=== PATIENT | male | born 1970 | race Caucasian/White ===

== ENCOUNTER 2017-03-02 01:49 | Inpatient (IN) | payer SELFPAY ==
[2017-03-02] MEDS ORDERED: DILAUDID IV ONE (02:53)
[2017-03-02] MEDS ORDERED: NACL 0.9% 1000 ML 1,000 ML IV ONE (02:53)
[2017-03-02] MEDS ORDERED: ZOFRAN IV ONE (02:53)
--- NOTE | 2017-03-02 02:54 | Emergency Department Report ---
ED Abdominal Pain HPI - General Chief Complaint: Abdominal Pain Stated Complaint: ABD PAIN X 5 DAYS Time Seen by Provider: 03/02/17 02:44 Source: patient, family, RN notes reviewed Mode of arrival: Stretcher Limitations: Language Barrier - History of Present Illness Initial Comments: patient requests that son translate This is a 46-year-old male. He is previously unknown to me. He does not have a local primary care doctor. The patient presents to the ER with epigastric and right upper quadrant pain for a few days. The pain is sharp. It increases with palpation and range of motion. Decreased rest. There is no headache or neck pain. There is no testicular pain. There is no irritative or obstructive urinary symptoms. His pain is been constant. It is worsening. MD Complaint: abdominal pain -: Gradual Location: RUQ, epigastric Radiation: none Severity: severe Quality: aching Consistency: constant Improves With: medication, rest Worsens With: medication Associated Symptoms: nausea - Related Data Home Medications Medication Instructions Recorded Confirmed Last Taken No Known Home Medications [No 03/02/17 03/02/17 Unknown Reported Home Medications] Allergies Allergy/AdvReac Type Severity Reaction Status Date / Time No Known Allergies Allergy Verified 03/02/17 02:08 ED Review of Systems ROS: Stated complaint: ABD PAIN X 5 DAYS Other details as noted in HPI Constitutional: malaise. denies: fever Eyes: denies: vision change ENT: denies: epistaxis Respiratory: denies: cough Cardiovascular: denies: palpitations Gastrointestinal: abdominal pain Genitourinary: denies: testicular pain Musculoskeletal: denies: back pain Skin: denies: lesions Neurological: weakness ED Past Medical Hx - Past Medical History Previous Medical History?: No - Surgical History Past Surgical History?: No - Social History Smoking Status: Never Smoker Substance Use Type: None - Medications Home Medications: Home Medications Medication Instructions Recorded Confirmed Last Taken Type No Known Home Medications [No 03/02/17 03/02/17 Unknown History Reported Home Medications] ED Physical Exam - General Limitations: Language Barrier General appearance: alert, in distress - Head Head exam: Present: atraumatic, normocephalic - Eye Eye exam: Present: normal appearance, EOMI - ENT ENT exam: Present: normal exam, normal orophraynx, mucous membranes moist, normal external ear exam - Neck Neck exam: Present: normal inspection, full ROM. Absent: tenderness, meningismus - Respiratory Respiratory exam: Present: normal lung sounds bilaterally. Absent: respiratory distress, wheezes, rales, rhonchi, stridor, chest wall tenderness - Cardiovascular Cardiovascular Exam: Present: regular rate, normal rhythm, normal heart sounds. Absent: bradycardia, tachycardia, irregular rhythm, systolic murmur, diastolic murmur, rubs, gallop - GI/Abdominal GI/Abdominal exam: Present: soft, tenderness, normal bowel sounds, other (there is epigastric tenderness. There is right upper quadrant tenderness.). Absent: distended, guarding, rebound, rigid, pulsatile mass - Rectal Rectal exam: Present: deferred - Extremities Exam Extremities exam: Present: normal inspection, full ROM, normal capillary refill. Absent: tenderness, pedal edema, joint swelling, calf tenderness - Back Exam Back exam: Present: normal inspection, full ROM. Absent: tenderness, CVA tenderness (R), CVA tenderness (L), muscle spasm, paraspinal tenderness, vertebral tenderness - Neurological Exam Neurological exam: Present: alert, other (Extraocular movements intact. Tongue midline. No facial droop. Facial sensation intact to light touch in the V1, V2 , V3 distribution bilaterally. 5 and 5 strength in 4 extremities.. Sensation is intact to light touch in 4 extremities.). Absent: motor sensory deficit - Psychiatric Psychiatric exam: Present: normal affect, normal mood - Skin Skin exam: Present: warm, dry, intact, normal color. Absent: rash ED Course Vital Signs 03/02/17 03/02/17 03/02/17 02:09 03:17 03:19 Temperature 98.4 F Pulse Rate 72 Respiratory 16 16 17 Rate Blood Pressure 118/71 Blood Pressure [Left] O2 Sat by Pulse 96 99 Oximetry 03/02/17 03/02/17 03/02/17 03:27 04:00 05:08 Temperature Pulse Rate 60 61 Respiratory 19 14 Rate Blood Pressure 111/59 Blood Pressure 126/72 108/58 [Left] O2 Sat by Pulse 97 96 Oximetry 03/02/17 05:52 Temperature Pulse Rate 60 Respiratory 15 Rate Blood Pressure Blood Pressure 105/67 [Left] O2 Sat by Pulse 96 Oximetry - Reevaluation(s) Reevaluation #1: 03/02/17 05:27 Dr Vallecillo accepts patient awaiting ct read awaiting GI callback Reevaluation #2: 03/02/17 05:59 ct scan suggests gallstone pancreatitis d/w Dr Hany Watson of GI, who will follow as a consult ED Medical Decision Making - Lab Data Result diagrams: 03/03/17 04:05 03/03/17 04:05 Vital Signs 03/02/17 03/02/17 03/02/17 02:09 03:17 03:19 Temperature 98.4 F Pulse Rate 72 Respiratory 16 16 17 Rate Blood Pressure 118/71 Blood Pressure [Left] O2 Sat by Pulse 96 99 Oximetry 03/02/17 03:27 Temperature Pulse Rate 60 Respiratory 19 Rate Blood Pressure Blood Pressure 126/72 [Left] O2 Sat by Pulse 97 Oximetry Labs 03/02/17 03/02/17 03/02/17 02:31 02:54 02:54 WBC 9.1 RBC 4.88 Hgb 15.0 Hct 42.7 MCV 87 MCH 31 MCHC 35 H RDW 13.8 Plt Count 194 Lymph % (Auto) 11.3 L Ray % (Auto) 7.7 H Eos % (Auto) 0.8 Baso % (Auto) 0.2 Lymph # 1.0 L Ray # 0.7 Eos # 0.1 Baso # 0.0 Seg Neutrophils % 80.0 H Seg Neutrophils # 7.3 PT INR Sodium 138 Potassium 3.8 Chloride 100.9 Carbon Dioxide 23 Anion Gap 18 BUN 20 Creatinine 0.9 Estimated GFR > 60 BUN/Creatinine Ratio 22.22 Glucose 130 H Lactic Acid Calcium 8.8 Total Bilirubin 6.10 H AST 192 H ALT 426 H Alkaline Phosphatase 144 H Total Protein 7.1 Albumin 4.1 Albumin/Globulin Ratio 1.4 Urine Color Lilian Urine Turbidity Clear Urine pH 5.0 Ur Specific Anthon 1.015 Urine Protein <15 mg/dl Urine Glucose (UA) Neg Urine Ketones Neg Urine Blood Sm Urine Nitrite Neg Urine Bilirubin Neg Urine Urobilinogen 4.0 Ur Leukocyte Esterase Neg Urine WBC (Auto) 1.0 Urine RBC (Auto) 3.0 U Epithel Cells (Auto) < 1.0 Urine Mucus Few 03/02/17 03/02/17 02:54 02:54 WBC RBC Hgb Hct MCV MCH MCHC RDW Plt Count Lymph % (Auto) Ray % (Auto) Eos % (Auto) Baso % (Auto) Lymph # Ray # Eos # Baso # Seg Neutrophils % Seg Neutrophils # PT 13.0 INR 0.94 Sodium Potassium Chloride Carbon Dioxide Anion Gap BUN Creatinine Estimated GFR BUN/Creatinine Ratio Glucose Lactic Acid 0.90 Calcium Total Bilirubin AST ALT Alkaline Phosphatase Total Protein Albumin Albumin/Globulin Ratio Urine Color Urine Turbidity Urine pH Ur Specific Anthon Urine Protein Urine Glucose (UA) Urine Ketones Urine Blood Urine Nitrite Urine Bilirubin Urine Urobilinogen Ur Leukocyte Esterase Urine WBC (Auto) Urine RBC (Auto) U Epithel Cells (Auto) Urine Mucus - EKG Data -: EKG Interpreted by Me EKG shows normal: sinus rhythm, axis, intervals, QRS complexes, ST-T waves - Radiology Data Radiology results: report reviewed - Medical Decision Making Differential diagnosis: Pancreatitis, cholecystitis, biliary obstruction, choledochal stone, renal colic, perforated viscus Assessment and plan: 46-year-old male with epigastric and right upper quadrant pain and tenderness. He is found to have a transaminitis and elevated direct bilirubin. He is treated with pain medicine and nausea medicine and IV fluids. CT scan of the abdomen and pelvis is pending. Critical care attestation.: If time is entered above; I have spent that time in minutes in the direct care of this critically ill patient, excluding procedure time. ED Disposition Clinical Impression: Transaminitis, Hyperbilirubinemia, Pancreatitis Disposition: [id number] OP ADMIT IP TO THIS HOSP Is pt being admited?: Yes Condition: Good
[2017-03-02 03:05] LABS: Bilirubin,Urine NEG (Negative); Blood,Urine SM (Negative); Ketones,Urine NEG (Negative); Leukocyte Esterase,Urine NEG (Negative); Mucus,Urine FEW /HPF; Nitrite,Urine NEG (Negative); Protein,Urine <15 mg/dL mg/dL (Negative)
[2017-03-02] MEDS ORDERED: NACL ONE (03:42)
[2017-03-02 03:48] LABS: Basophils % (Auto) 0.2 % (0.0-1.8); Eosinophils % (Auto) 0.8 % (0.0-4.3); Hematocrit 42.7 % (35.5-45.6); Mean Corpuscular HGB Conc 35 % (32-34); Mean Corpuscular Hemoglobin 31 pg (28-32); Mean Corpuscular Volume 87 fl (84-94); Platelet Count 194 K/mm3 (140-440); Red Blood Count 4.88 M/mm3 (3.65-5.03); Red Cell Distribution Width 13.8 % (13.2-15.2); White Blood Count 9.1 K/mm3 (4.5-11.0)
[2017-03-02 03:57] LABS: Alanine Aminotransferase 426 units/L (7-56); Albumin 4.1 g/dL (3.9-5); Albumin/Globulin Ratio 1.4 %; Alkaline Phosphatase 144 units/L (35-129); Anion Gap 18 mmol/L; BUN/Creatinine Ratio 22.22; Blood Urea Nitrogen 20 mg/dL (9-20); Calcium 8.8 mg/dL (8.4-10.2); Carbon Dioxide 23 mmol/L (22-30); Chloride 100.9 mmol/L (98-107); Glucose 130 mg/dL (75-100); INR 0.94 (0.87-1.13); Potassium 3.8 mmol/L (3.6-5.0); Sodium 138 mmol/L (137-145); Total Protein 7.1 g/dL (6.3-8.2)
[2017-03-02 04:33] LABS: Lipase 2793 units/L (13-60)
--- NOTE | 2017-03-02 05:41 | Cat Scan Report ---
FINAL REPORT PROCEDURE: CT ABDOMEN PELVIS W CON TECHNIQUE: Computerized axial tomography of the abdomen and pelvis was performed after the IV injection of iodinated nonionic contrast. HISTORY: abd pain COMPARISON: No prior studies are available for comparison. FINDINGS: Visualized lower thorax: No significant abnormality. Liver: Normal size and attenuation. Spleen: Normal size and attenuation. Gallbladder and biliary system: There is cholelithiasis and choledocholithiasis. There is no specific evidence of cholecystitis.. Pancreas: There is peripancreatic edema indicating acute pancreatitis. There is no pancreatic mass or pseudocyst.. Adrenals: Normal. Kidneys: Normal. GI tract: There is no bowel obstruction, colitis or enteritis. The appendix is normal. There are diverticula of the sigmoid and left colon.. Lymph nodes and mesentery: Normal. Vasculature: Normal. Bladder: Normal. Reproductive organs: Normal. Peritoneum: There is no ascites or free air, abscess or adenopathy.. Musculoskeletal structures: There is bilateral spondylolysis at L5-S1.. Other: None. IMPRESSION: There is cholelithiasis and choledocholithiasis. There is no specific evidence of cholecystitis.. There is peripancreatic edema indicating acute pancreatitis. There is no pancreatic mass or pseudocyst.. There is no bowel obstruction, colitis or enteritis. The appendix is normal. There are diverticula of the sigmoid and left colon.. There is no ascites or free air, abscess or adenopathy..
[2017-03-02] MEDS ORDERED: MERREM 1,000 MG in NACL 0.9% 100 ML IV ONE (05:45)
--- NOTE | 2017-03-02 07:34 | History and Physical Report ---
History of Present Illness Date of examination: 03/02/17 Date of admission: 03/02/17 05:28 Chief complaint: abdominal pain, nausea and vomiting History of present illness: This is a 46-year-old male who presents with a complaint of abdominal pain for the past five days. He localizes the pain to his epigastric area and states that it radiates to his right upper quadrant. He notes that it became markedly worse after eating dinner last night. The intensity of the pain has been increasing over the past two days and on pain scale he now rates the pain at 8 out of 10. Currently, the pain is described as a constant sharp and well localized. Pain worst with movement and palpation of the upper abdomen. There is no relieving factors. He does not taking anything to alleviate the pain. His last bowel movement was over five yesterday. He recalls a past history of similar pain, but has never had any diagnostic workup. Patient does not have primary care provider. he denies nausea or vomiting. He denies a recent history of fever, jaundice, pruritis, diarrhea, hemoptysis, melena, or hematochezia. He denies a known history of hemorrhoids, diverticulitis, colon cancer, peptic ulcer disease, gastritis, acid reflux, gall bladder disease or cholelithiasis. Past History Past Medical History: No medical history Past Surgical History: No surgical history Social history: no significant social history, smoking. denies: alcohol abuse Family history: CAD, hypertension Medications and Allergies Allergies Allergy/AdvReac Type Severity Reaction Status Date / Time No Known Allergies Allergy Verified 03/02/17 02:08 Home Medications Medication Instructions Recorded Confirmed Last Taken Type No Known Home Medications [No 03/02/17 03/02/17 Unknown History Reported Home Medications] Review of Systems Constitutional: no weight loss, no weight gain, no fever, no chills, no sweats, no night sweats Ears, nose, mouth and throat: no ear pain, no ear discharge, no tinnitis, no decreased hearing Cardiovascular: no chest pain, no orthopnea, no palpitations, no rapid/ irregular heart beat, no edema, no lightheadedness, no shortness of breath Respiratory: no cough, no cough with sputum, no excessive sputum, no hemoptysis , no shortness of breath Gastrointestinal: abdominal pain, no nausea, no vomiting, no diarrhea, no constipation Genitourinary Male: no dysuria, no hematuria, no flank pain, no discharge, no urinary frequency Rectal: no pain, no incontinence Musculoskeletal: no neck stiffness, no neck pain, no shooting arm pain Integumentary: no rash, no pruritis, no redness, no sores Neurological: no head injury, no transient paralysis, no paralysis, no weakness , no parathesias, no numbness, no tingling Psychiatric: no anxiety, no memory loss, no change in sleep habits Endocrine: no cold intolerance, no heat intolerance, no polyphagia Hematologic/Lymphatic: no easy bruising, no easy bleeding Allergic/Immunologic: no urticaria, no allergic rhinitis Exam - Constitutional Vitals: Temp Pulse Resp BP Pulse Ox 97.8 F 53 L 16 119/76 93 03/02/17 06:40 03/02/17 06:40 03/02/17 06:40 03/02/17 06:40 03/02/17 06:40 General appearance: Present: no acute distress - EENT Eyes: Present: PERRL ENT: hearing intact, clear oral mucosa, dentition normal - Neck Neck: Present: supple - Respiratory Respiratory effort: normal Respiratory: bilateral: CTA - Cardiovascular Heart rate: 53 (bradycardia) Rhythm: regular - Extremities Extremities: no ischemia Peripheral Pulses: within normal limits - Abdominal General gastrointestinal: Present: soft, tender Localized gastrointestinal: guarding: RUQ, epigastric periumbilical Male genitourinary: Present: deferred - Rectal Rectal Exam: deferred - Integumentary Integumentary: Present: clear, warm, dry - Musculoskeletal Musculoskeletal: strength equal bilaterally - Psychiatric Psychiatric: appropriate mood/affect - Neurologic Neurologic: CNII-XII intact - Allied Health Allied health notes reviewed: nursing Results - Labs CBC & Chem 7: 03/02/17 02:54 03/02/17 02:54 Labs: Laboratory Last Values WBC 9.1 K/mm3 (4.5-11.0) 03/02/17 02:54 RBC 4.88 M/mm3 (3.65-5.03) 03/02/17 02:54 Hgb 15.0 gm/dl (11.8-15.2) 03/02/17 02:54 Hct 42.7 % (35.5-45.6) 03/02/17 02:54 MCV 87 fl (84-94) 03/02/17 02:54 MCH 31 pg (28-32) 03/02/17 02:54 MCHC 35 % (32-34) H 03/02/17 02:54 RDW 13.8 % (13.2-15.2) 03/02/17 02:54 Plt Count 194 K/mm3 (140-440) 03/02/17 02:54 Lymph % (Auto) 11.3 % (13.4-35.0) L 03/02/17 02:54 Rapides % (Auto) 7.7 % (0.0-7.3) H 03/02/17 02:54 Eos % (Auto) 0.8 % (0.0-4.3) 03/02/17 02:54 Baso % (Auto) 0.2 % (0.0-1.8) 03/02/17 02:54 Lymph # 1.0 K/mm3 (1.2-5.4) L 03/02/17 02:54 Rapides # 0.7 K/mm3 (0.0-0.8) 03/02/17 02:54 Eos # 0.1 K/mm3 (0.0-0.4) 03/02/17 02:54 Baso # 0.0 K/mm3 (0.0-0.1) 03/02/17 02:54 Seg Neutrophils % 80.0 % (40.0-70.0) H 03/02/17 02:54 Seg Neutrophils # 7.3 K/mm3 (1.8-7.7) 03/02/17 02:54 PT 13.0 Sec. (12.2-14.9) 03/02/17 02:54 INR 0.94 (0.87-1.13) 03/02/17 02:54 Sodium 138 mmol/L (137-145) 03/02/17 02:54 Potassium 3.8 mmol/L (3.6-5.0) 03/02/17 02:54 Chloride 100.9 mmol/L (98-107) 03/02/17 02:54 Carbon Dioxide 23 mmol/L (22-30) 03/02/17 02:54 Anion Gap 18 mmol/L 03/02/17 02:54 BUN 20 mg/dL (9-20) 03/02/17 02:54 Creatinine 0.9 mg/dL (0.8-1.5) 03/02/17 02:54 Estimated GFR > 60 ml/min 03/02/17 02:54 BUN/Creatinine Ratio 22.22 % 03/02/17 02:54 Glucose 130 mg/dL (75-100) H 03/02/17 02:54 Lactic Acid 0.90 mmol/L (0.7-2.0) 03/02/17 02:54 Calcium 8.8 mg/dL (8.4-10.2) 03/02/17 02:54 Total Bilirubin 6.10 mg/dL (0.1-1.2) H 03/02/17 02:54 AST 192 units/L (5-40) H 03/02/17 02:54 ALT 426 units/L (7-56) H 03/02/17 02:54 Alkaline Phosphatase 144 units/L (35-129) H 03/02/17 02:54 Total Protein 7.1 g/dL (6.3-8.2) 03/02/17 02:54 Albumin 4.1 g/dL (3.9-5) 03/02/17 02:54 Albumin/Globulin Ratio 1.4 % 03/02/17 02:54 Lipase 2793 units/L (13-60) H 03/02/17 02:54 Urine Color Lilian (Yellow) 03/02/17 02:31 Urine Turbidity Clear (Clear) 03/02/17 02:31 Urine pH 5.0 (5.0-7.0) 03/02/17 02:31 Ur Specific Wilder 1.015 (1.003-1.030) 03/02/17 02:31 Urine Protein <15 mg/dl mg/dL (Negative) 03/02/17 02:31 Urine Glucose (UA) Neg mg/dL (Negative) 03/02/17 02:31 Urine Ketones Neg mg/dL (Negative) 03/02/17 02:31 Urine Blood Sm (Negative) 03/02/17 02:31 Urine Nitrite Neg (Negative) 03/02/17 02:31 Urine Bilirubin Neg (Negative) 03/02/17 02:31 Urine Urobilinogen 4.0 mg/dL (<2.0) 03/02/17 02:31 Ur Leukocyte Esterase Neg (Negative) 03/02/17 02:31 Urine WBC (Auto) 1.0 /HPF (0.0-6.0) 03/02/17 02:31 Urine RBC (Auto) 3.0 /HPF (0.0-6.0) 03/02/17 02:31 U Epithel Cells (Auto) < 1.0 /HPF (0-13.0) 03/02/17 02:31 Urine Mucus Few /HPF 03/02/17 02:31 - Imaging and Cardiology CT scan - pelvis: image reviewed (there is cholelithiasis and choledocholithiasis. There is no significant evidence of cholecystitis. There is peripancreatic edema indicating acute pancreatitis.) Assessment and Plan Assessment and plan: This is a 46-year-old male who presents with a complaint of abdominal pain for the past five days. He localizes the pain to his epigastric area and states that it radiates to his right upper quadrant. He notes that it became markedly worse after eating dinner last night. Patient found to have elevated - T.jaquelin 6.10,AST 192, ALT 144, Lipase 2793. Also Abdominal/pelvic CT revealed cholelithiasis vs choledocholithiasis and acute pancreatitis. ASSESSMENT/PLAN Acute pancreatitis CT of the abdomen shows that peripancreatic edema indicating acute pancreatitis. Elevated Lipase, bilirubin AST/ALT Nothing by mouth, bowel rest Fluid hydration Antimetics as necessary Pain controlled with IV morphine/ supportive care GI consulted Elevated Liver ezyme secondary to Pancreatitis Repeat CMP and closely monitor liver enzymes GI consulted Ongoing smoking Smoking counseling done patient strongly advised to quit smoking and patient agreed upon course of action. DVT prophylaxis Lovenox
[2017-03-02] MEDS ORDERED: MORPHINE IV PRN (07:49)
[2017-03-02] MEDS ORDERED: ZOFRAN IV PRN ×2 (07:49→07:52)
[2017-03-02] MEDS ORDERED: TYLENOL PO PRN (07:49)
[2017-03-02] MEDS ORDERED: DULCOLAX PR PRN (07:49)
--- NOTE | 2017-03-02 07:55 | Admit Criteria Form ---
Admission Criteria Documentation: PANCREATITIS Clinical Indications for Admission to Inpatient Care (Place 'X' for any and all applicable criteria): Admission is indicated for 1 or more of the following (1)(2)(3)(4): [ X]I. Acute pancreatitis[A] as indicated by 2 or MORE of the following: [X ]a) Abdominal pain (eg, epigastric, left upper quadrant) [ X]b) Serum amylase or serum lipase greater than 3 times the upper limit of normal [ ]c) Characteristic findings from abdominal imaging (eg, pancreatic inflammation, pancreatic necrosis, peripancreatic fluid collection)[B] [ ]II. Pancreatitis (acute or chronic ) requiring inpatient care as indicated by 1 or more of the following [ ]a) Inability to maintain oral hydration Hypoxemia [ ]b) Evidence of infection (eg, fever, peripancreatic abscess) [ ]c) Severe pain requiring acute inpatient management [ ]d) Hemodynamic instability [ ]e) Hypoxemia [ ]f) Acute renal failure [ ]g) Severe electrolyte abnormalities Extended stay beyond goal length of stay may be needed for (1)(11) [ ]a) Severe acute pancreatitis (10)(19) [ ]b) Persistent symptoms, ascites, or pleural effusion [ ]c) Abdominal compartment syndrome (10) [ ]d) Late complications [ ]e) Gallstones in gallbladder [ ]f) Acute renal failure (27) The original [employer] content created by [employer] has been revised. The portions of the content which have been revised are identified through the use of italic text or in bold,and [facility] has neither reviewed nor approved the modified material.All other unmodified content is copyright [facility]. Please see references footnoted in the original [facility] edition 2016 Admission Criteria Met: Yes
[2017-03-02] MEDS: MORPHINE IV PRN ×4 (08:41→23:54)
[2017-03-02] MEDS: NACL 0.9% 1000 ML 1,000 ML IV SCH ×2 (08:41→18:42)
--- NOTE | 2017-03-02 09:18 | Gastroenterology Consultation ---
<MI SKINNER - Last Filed: 03/02/17 09:31> History of Present Illness - Reason for Consult Consult date: 03/02/17 abd pain Requesting physician: JEANINE CISNEROS - History of Present Illness Patient is a 46 y/o male who presented to the ER with epigastric pain that is sharp and radiates to RUQ and is worsened by eating x [address] revealed cholelithiasis and choledocholithiasis. Patient speaks very little Bulgarian. This morning he was resting in the bed with no acute distress, with family at bed, including son who was available to assist in translating. Patient states abd pain has improved some with receiving pain medication but is buffing machine tender to palpation. Denies N/V, fever, wt loss, pruritis, heartburn, regurgitation, dysphagia, diarrhea, or signs of abnormal bleeding. Slight jaundice noted. No hx of PUD. Reports no hx/Fhx of liver disease. No ETOH abuse. No Fhx of liver or pancreatic CA. No significant medical hx. Past History Past Medical History: No medical history Past Surgical History: No surgical history Social history: , lives with family. denies: alcohol abuse Family history: no significant family history Medications and Allergies Allergies Allergy/AdvReac Type Severity Reaction Status Date / Time No Known Allergies Allergy Verified 03/02/17 02:08 Home Medications Medication Instructions Recorded Confirmed Last Taken Type No Known Home Medications [No 03/02/17 03/02/17 Unknown History Reported Home Medications] Active Meds: Active Medications Acetaminophen (Tylenol) 650 mg PO Q4H PRN PRN Reason: Pain MILD(1-3)/Fever >100.5/TIRADO Bisacodyl (Dulcolax) 10 mg VA QDAY PRN PRN Reason: Constipation unrelieved by MOM Enoxaparin Sodium (Lovenox) 40 mg SUB-Q QDAY@2200 TAWANNA Sodium Chloride (Nacl 0.9% 1000 Ml) 1,000 mls @ 100 mls/hr IV DIRECT TAWANNA Last Admin: 03/02/17 08:41 Dose: 100 mls/hr Morphine Sulfate (Morphine) 2 mg IV Q4H PRN PRN Reason: Pain, Moderate (4-6) Last Admin: 03/02/17 08:41 Dose: 2 mg Ondansetron HCl (Zofran) 4 mg IV Q4H PRN PRN Reason: Nausea And Vomiting Review of Systems - Review of Systems All systems: negative Gastrointestinal: abdominal pain (epigastric and RUQ), no vomiting, no change in bowel habits, no hematemesis, no coffee ground emesis, no melena, no hematochezia, no heartburn Exam - Constitutional Vital Signs: Temp Pulse Resp BP Pulse Ox 97.8 F 53 L 16 119/76 93 03/02/17 06:40 03/02/17 06:40 03/02/17 06:40 03/02/17 06:40 03/02/17 06:40 General appearance: no acute distress, well-nourished - EENT Eyes: PERRL, EOM intact, scleral icterus (mild) ENT: hearing intact - Neck Neck: supple, normal ROM - Respiratory Respiratory: bilateral: CTA - Cardiovascular Rhythm: regular Heart Sounds: Present: S1 & S2 Extremities: No edema - Gastrointestinal General gastrointestinal: Present: soft, tender (epigastric, RUQ, LUQ), non- distended, normal bowel sounds - Integumentary Integumentary: Present: warm, dry, jaundice (mild) - Neurologic Neurological: alert and oriented x3 - Psychiatric Psychiatric: appropriate mood/affect, cooperative - Labs CBC & Chem 7: 03/02/17 02:54 03/02/17 02:54 Assessment and Plan 1.choledocholithiasis 2.gallstone pancreatitis 3.abd pain -afebrile -WBC 9.1 -T.jaquelin 6.10,AST 192, ALT 144, Lipase 2793 -abd CT revealed cholelithiasis and choledocholithiasis -Keep NPO -continue supportive care with IVFs, pain medications, antimetics, and f/u labs -will speak to Dr. Leavitt to determine scheduling of ERCP due to acute pancreatitis -will follow <VICENTA LEAVITT - Last Filed: 03/02/17 11:21> Medications and Allergies Active Meds: Active Medications Acetaminophen (Tylenol) 650 mg PO Q4H PRN PRN Reason: Pain MILD(1-3)/Fever >100.5/TIRADO Bisacodyl (Dulcolax) 10 mg VA QDAY PRN PRN Reason: Constipation unrelieved by MOM Enoxaparin Sodium (Lovenox) 40 mg SUB-Q QDAY@2200 TAWANNA Sodium Chloride (Nacl 0.9% 1000 Ml) 1,000 mls @ 100 mls/hr IV DIRECT TAWANNA Last Admin: 03/02/17 08:41 Dose: 100 mls/hr Morphine Sulfate (Morphine) 2 mg IV Q4H PRN PRN Reason: Pain, Moderate (4-6) Last Admin: 03/02/17 08:41 Dose: 2 mg Ondansetron HCl (Zofran) 4 mg IV Q4H PRN PRN Reason: Nausea And Vomiting Exam - Constitutional Vital Signs: Temp Pulse Resp BP Pulse Ox 97.8 F 53 L 16 119/76 93 03/02/17 06:40 03/02/17 06:40 03/02/17 06:40 03/02/17 06:40 03/02/17 06:40 - Labs CBC & Chem 7: 03/02/17 02:54 03/02/17 02:54 Assessment and Plan - Patient Problems (1) Choledocholithiasis with obstruction Current Visit: Yes Status: Acute Qualifiers: Cholecystitis presence: C Cholangitis presence: C Cholecystitis acuity: C Cholangitis acuity: C Plan to address problem: Multiple GB stones, CBD stones and obstruction complicated by acute pancreatitis. Clinically he has improved overnight. The safety of ERCP will be improved by allowing further improvement in his pancreatitis. Will plan ERCP in the next few days unless worsening. Will track lipase, (now 2700) and CMP. ERCP and sphincterotomy was discussed at length with the patient, and son at bedside. He will need surgical consultation for cholecystectomy the timing of which will be determined by the surgeon. Thank you very much for asking us to see him in consultation. (2) Pancreatitis Current Visit: Yes Status: Acute Qualifiers: Chronicity: C Pancreatitis type: P Acute pancreatitis complication: A
[2017-03-02] MEDS: LOVENOX SUB-Q SCH (23:55)
[2017-03-03 04:29] LABS: Basophils % (Auto) 0.3 % (0.0-1.8); Eosinophils % (Auto) 1.3 % (0.0-4.3); Hematocrit 41.2 % (35.5-45.6); Mean Corpuscular HGB Conc 34 % (32-34); Mean Corpuscular Hemoglobin 30 pg (28-32); Mean Corpuscular Volume 89 fl (84-94); Platelet Count 170 K/mm3 (140-440); Red Blood Count 4.63 M/mm3 (3.65-5.03); Red Cell Distribution Width 13.8 % (13.2-15.2); White Blood Count 6.7 K/mm3 (4.5-11.0)
[2017-03-03 04:47] LABS: Alanine Aminotransferase 290 units/L (7-56); Albumin 3.5 g/dL (3.9-5); Albumin/Globulin Ratio 1.1 %; Alkaline Phosphatase 138 units/L (35-129); Anion Gap 20 mmol/L; BUN/Creatinine Ratio 27.14; Blood Urea Nitrogen 19 mg/dL (9-20); Calcium 8.4 mg/dL (8.4-10.2); Carbon Dioxide 19 mmol/L (22-30); Chloride 106.5 mmol/L (98-107); Glucose 85 mg/dL (75-100); Potassium 3.8 mmol/L (3.6-5.0); Sodium 142 mmol/L (137-145); Total Protein 6.6 g/dL (6.3-8.2)
[2017-03-03] MEDS: NACL 0.9% 1000 ML 1,000 ML IV SCH ×3 (05:40→19:47)
--- NOTE | 2017-03-03 12:20 | Progress Note ---
Assessment and Plan Assessment and plan: This is a 46-year-old male, w no significant pmh who presents with a complaint of abdominal pain, and loss of appetite Acute Gall stone pancreatitis with choledocolithiasis advance diet to clear liquids GI input appreciated for ERCP on Sunday will need cholecystectomy after that as he has numerous stone in his GB, to prevent recurrence Will place Gen Surgery consult on Sunday Elevated Liver ezyme secondary to Pancreatitis Repeat CMP and closely monitor liver enzymes Ongoing smoking Smoking counseling done patient strongly advised to quit smoking and patient agreed upon course of action. DVT prophylaxis Lovenox History Interval history: abdominal pain is now improved, it is Dull, epigastric radiating to his back, 4/ 10, no nausea, admits that he now feels hungry Hospitalist Physical - Constitutional Vitals: Temp Pulse Resp BP Pulse Ox 97.5 F L 70 20 115/57 98 03/03/17 08:00 03/03/17 08:00 03/03/17 08:00 03/03/17 08:00 03/03/17 08:00 General appearance: Present: no acute distress - EENT Eyes: Present: PERRL, EOM intact ENT: hearing intact, clear oral mucosa, dentition normal - Neck Neck: Present: supple, normal ROM - Respiratory Respiratory effort: normal Respiratory: bilateral: CTA - Cardiovascular Rhythm: regular Heart Sounds: Present: S1 & S2 - Extremities Extremities: no ischemia, pulses intact, No edema Peripheral Pulses: within normal limits - Abdominal General gastrointestinal: soft, tender, non-distended, normal bowel sounds Localized gastrointestinal: tender: epigastric periumbilical - Integumentary Integumentary: Present: clear, warm, dry - Psychiatric Psychiatric: appropriate mood/affect, intact judgment & insight - Neurologic Neurologic: CNII-XII intact, no focal deficits, moves all extremities Results - Labs CBC & Chem 7: 03/03/17 04:05 03/03/17 04:05 Labs: Laboratory Last Values WBC 6.7 K/mm3 (4.5-11.0) 03/03/17 04:05 RBC 4.63 M/mm3 (3.65-5.03) 03/03/17 04:05 Hgb 14.0 gm/dl (11.8-15.2) 03/03/17 04:05 Hct 41.2 % (35.5-45.6) 03/03/17 04:05 MCV 89 fl (84-94) 03/03/17 04:05 MCH 30 pg (28-32) 03/03/17 04:05 MCHC 34 % (32-34) 03/03/17 04:05 RDW 13.8 % (13.2-15.2) 03/03/17 04:05 Plt Count 170 K/mm3 (140-440) 03/03/17 04:05 Lymph % (Auto) 19.8 % (13.4-35.0) 03/03/17 04:05 [place] % (Auto) 7.3 % (0.0-7.3) 03/03/17 04:05 Eos % (Auto) 1.3 % (0.0-4.3) 03/03/17 04:05 Baso % (Auto) 0.3 % (0.0-1.8) 03/03/17 04:05 Lymph # 1.3 K/mm3 (1.2-5.4) 03/03/17 04:05 [place] # 0.5 K/mm3 (0.0-0.8) 03/03/17 04:05 Eos # 0.1 K/mm3 (0.0-0.4) 03/03/17 04:05 Baso # 0.0 K/mm3 (0.0-0.1) 03/03/17 04:05 Seg Neutrophils % 71.3 % (40.0-70.0) H 03/03/17 04:05 Seg Neutrophils # 4.8 K/mm3 (1.8-7.7) 03/03/17 04:05 PT 13.0 Sec. (12.2-14.9) 03/02/17 02:54 INR 0.94 (0.87-1.13) 03/02/17 02:54 Sodium 142 mmol/L (137-145) 03/03/17 04:05 Potassium 3.8 mmol/L (3.6-5.0) 03/03/17 04:05 Chloride 106.5 mmol/L (98-107) 03/03/17 04:05 Carbon Dioxide 19 mmol/L (22-30) L 03/03/17 04:05 Anion Gap 20 mmol/L 03/03/17 04:05 BUN 19 mg/dL (9-20) 03/03/17 04:05 Creatinine 0.7 mg/dL (0.8-1.5) L 03/03/17 04:05 Estimated GFR > 60 ml/min 03/03/17 04:05 BUN/Creatinine Ratio 27.14 % 03/03/17 04:05 Glucose 85 mg/dL (75-100) 03/03/17 04:05 Lactic Acid 0.90 mmol/L (0.7-2.0) 03/02/17 02:54 Calcium 8.4 mg/dL (8.4-10.2) 03/03/17 04:05 Total Bilirubin 2.80 mg/dL (0.1-1.2) H 03/03/17 04:05 AST 79 units/L (5-40) H 03/03/17 04:05 ALT 290 units/L (7-56) H 03/03/17 04:05 Alkaline Phosphatase 138 units/L (35-129) H 03/03/17 04:05 Total Protein 6.6 g/dL (6.3-8.2) 03/03/17 04:05 Albumin 3.5 g/dL (3.9-5) L 03/03/17 04:05 Albumin/Globulin Ratio 1.1 % 03/03/17 04:05 Lipase 2793 units/L (13-60) H 03/02/17 02:54 Urine Color Lilian (Yellow) 03/02/17 02:31 Urine Turbidity Clear (Clear) 03/02/17 02:31 Urine pH 5.0 (5.0-7.0) 03/02/17 02:31 Ur Specific [place] 1.015 (1.003-1.030) 03/02/17 02:31 Urine Protein <15 mg/dl mg/dL (Negative) 03/02/17 02:31 Urine Glucose (UA) Neg mg/dL (Negative) 03/02/17 02:31 Urine Ketones Neg mg/dL (Negative) 03/02/17 02:31 Urine Blood Sm (Negative) 03/02/17 02:31 Urine Nitrite Neg (Negative) 03/02/17 02:31 Urine Bilirubin Neg (Negative) 03/02/17 02:31 Urine Urobilinogen 4.0 mg/dL (<2.0) 03/02/17 02:31 Ur Leukocyte Esterase Neg (Negative) 03/02/17 02:31 Urine WBC (Auto) 1.0 /HPF (0.0-6.0) 03/02/17 02:31 Urine RBC (Auto) 3.0 /HPF (0.0-6.0) 03/02/17 02:31 U Epithel Cells (Auto) < 1.0 /HPF (0-13.0) 03/02/17 02:31 Urine Mucus Few /HPF 03/02/17 02:31
--- NOTE | 2017-03-03 18:32 | Gastroenterology Progress Note ---
Assessment and Plan - Patient Problems (1) Acute gallstone pancreatitis Current Visit: Yes Status: Acute Plan to address problem: - Clinically improved and LFTs better today. - Will re-check labs in the AM, and if lipase continues to improve, plan ERCP as early as Sunday to clear CBD. - Still has innumerable GS in the GB and will need CCY after ERCP. - Since afebrile with normal WBC, continue to hold antibiotics. - OK to continue clear liquids. Subjective Date of service: 03/03/17 Principal diagnosis: Gallstone Pancreatitis Interval history: The patient says he feels much better today. There have been no fevers or chills, and he denies severe abdominal pain - there is only mild pain in the RUQ. Objective - Constitutional Vitals: Temp Pulse Resp BP Pulse Ox 97.7 F 74 20 124/62 97 03/03/17 16:00 03/03/17 16:00 03/03/17 16:00 03/03/17 16:00 03/03/17 16:00 General appearance: no acute distress - EENT Eyes: PERRL, EOM intact - Respiratory Respiratory effort: normal Respiratory: bilateral: CTA - Cardiovascular Rhythm: regular Heart Sounds: Present: S1 & S2 - Gastrointestinal General gastrointestinal: Present: soft, non-tender, non-distended - Labs CBC & Chem 7: 03/03/17 04:05 03/03/17 04:05 Labs: Laboratory Results - last 24 hr 03/03/17 03/03/17 04:05 04:05 WBC 6.7 RBC 4.63 Hgb 14.0 Hct 41.2 MCV 89 MCH 30 MCHC 34 RDW 13.8 Plt Count 170 Lymph % (Auto) 19.8 [place] % (Auto) 7.3 Eos % (Auto) 1.3 Baso % (Auto) 0.3 Lymph # 1.3 [place] # 0.5 Eos # 0.1 Baso # 0.0 Seg Neutrophils % 71.3 H Seg Neutrophils # 4.8 Sodium 142 Potassium 3.8 Chloride 106.5 Carbon Dioxide 19 L Anion Gap 20 BUN 19 Creatinine 0.7 L Estimated GFR > 60 BUN/Creatinine Ratio 27.14 Glucose 85 Calcium 8.4 Total Bilirubin 2.80 H AST 79 H ALT 290 H Alkaline Phosphatase 138 H Total Protein 6.6 Albumin 3.5 L Albumin/Globulin Ratio 1.1
[2017-03-03] MEDS: LOVENOX SUB-Q SCH (21:50)
[2017-03-03] MEDS: MORPHINE IV PRN (23:10)
[2017-03-04] MEDS: NACL 0.9% 1000 ML 1,000 ML IV SCH ×2 (02:12→08:33)
[2017-03-04 07:08] LABS: Albumin 3.5 g/dL (3.9-5); Albumin/Globulin Ratio 1.2 %; Alkaline Phosphatase 116 units/L (35-129); Anion Gap 18 mmol/L; BUN/Creatinine Ratio 18.57; Blood Urea Nitrogen 13 mg/dL (9-20); Calcium 8.2 mg/dL (8.4-10.2); Carbon Dioxide 20 mmol/L (22-30); Chloride 105.6 mmol/L (98-107); Glucose 88 mg/dL (75-100); Lipase 191 units/L (13-60); Potassium 3.8 mmol/L (3.6-5.0); Sodium 140 mmol/L (137-145); Total Protein 6.5 g/dL (6.3-8.2)
[2017-03-04 09:07] LABS: Alanine Aminotransferase 191 units/L (7-56)
--- NOTE | 2017-03-04 11:16 | Progress Note ---
Assessment and Plan Assessment and plan: This is a 46-year-old male, w no significant pmh who presents with a complaint of abdominal pain, and loss of appetite Acute Gall stone pancreatitis with choledocolithiasis advance diet to clear liquids GI input appreciated for ERCP on Sunday lipase trended down will need cholecystectomy after that as he has numerous stone in his GB, to prevent recurrence Gen surgery consult Elevated Liver ezyme secondary to Pancreatitis Repeat CMP and closely monitor liver enzymes Ongoing smoking Smoking counseling done patient strongly advised to quit smoking and patient agreed upon course of action. DVT prophylaxis Lovenox History Interval history: abdominal pain is now improved, it is Dull, epigastric radiating to his back, 4/ 10, no nausea, admits that he now feels hungry Hospitalist Physical - Physical exam Narrative exam: General: Patient appears well in no distress HEENT: MMM, EOMI cardiac: S1-S2 heard lungs: clear to auscultation, abdomen: soft, nontender, nondistended bowel sounds positive extremities: no edema clubbing or cyanosis Skin: no rash or lesion Neuro: no focal deficit Psych: appropriate behavior and mood, cognition intact - Constitutional Vitals: Temp Pulse Resp BP Pulse Ox 98.4 F 59 L 20 125/64 98 03/04/17 08:00 03/04/17 08:00 03/04/17 08:00 03/04/17 08:00 03/04/17 08:00 General appearance: Present: no acute distress Results - Labs CBC & Chem 7: 03/03/17 04:05 03/04/17 06:14 Labs: Laboratory Last Values WBC 6.7 K/mm3 (4.5-11.0) 03/03/17 04:05 RBC 4.63 M/mm3 (3.65-5.03) 03/03/17 04:05 Hgb 14.0 gm/dl (11.8-15.2) 03/03/17 04:05 Hct 41.2 % (35.5-45.6) 03/03/17 04:05 MCV 89 fl (84-94) 03/03/17 04:05 MCH 30 pg (28-32) 03/03/17 04:05 MCHC 34 % (32-34) 03/03/17 04:05 RDW 13.8 % (13.2-15.2) 03/03/17 04:05 Plt Count 170 K/mm3 (140-440) 03/03/17 04:05 Lymph % (Auto) 19.8 % (13.4-35.0) 03/03/17 04:05 [place] % (Auto) 7.3 % (0.0-7.3) 03/03/17 04:05 Eos % (Auto) 1.3 % (0.0-4.3) 03/03/17 04:05 Baso % (Auto) 0.3 % (0.0-1.8) 03/03/17 04:05 Lymph # 1.3 K/mm3 (1.2-5.4) 03/03/17 04:05 [place] # 0.5 K/mm3 (0.0-0.8) 03/03/17 04:05 Eos # 0.1 K/mm3 (0.0-0.4) 03/03/17 04:05 Baso # 0.0 K/mm3 (0.0-0.1) 03/03/17 04:05 Seg Neutrophils % 71.3 % (40.0-70.0) H 03/03/17 04:05 Seg Neutrophils # 4.8 K/mm3 (1.8-7.7) 03/03/17 04:05 PT 13.0 Sec. (12.2-14.9) 03/02/17 02:54 INR 0.94 (0.87-1.13) 03/02/17 02:54 Sodium 140 mmol/L (137-145) 03/04/17 06:14 Potassium 3.8 mmol/L (3.6-5.0) 03/04/17 06:14 Chloride 105.6 mmol/L (98-107) 03/04/17 06:14 Carbon Dioxide 20 mmol/L (22-30) L 03/04/17 06:14 Anion Gap 18 mmol/L 03/04/17 06:14 BUN 13 mg/dL (9-20) 03/04/17 06:14 Creatinine 0.7 mg/dL (0.8-1.5) L 03/04/17 06:14 Estimated GFR > 60 ml/min 03/04/17 06:14 BUN/Creatinine Ratio 18.57 % 03/04/17 06:14 Glucose 88 mg/dL (75-100) 03/04/17 06:14 Lactic Acid 0.90 mmol/L (0.7-2.0) 03/02/17 02:54 Calcium 8.2 mg/dL (8.4-10.2) L 03/04/17 06:14 Total Bilirubin 2.10 mg/dL (0.1-1.2) H 03/04/17 06:14 AST 45 units/L (5-40) H 03/04/17 06:14 ALT 191 units/L (7-56) H 03/04/17 06:14 Alkaline Phosphatase 116 units/L (35-129) 03/04/17 06:14 Total Protein 6.5 g/dL (6.3-8.2) 03/04/17 06:14 Albumin 3.5 g/dL (3.9-5) L 03/04/17 06:14 Albumin/Globulin Ratio 1.2 % 03/04/17 06:14 Lipase 191 units/L (13-60) H 03/04/17 06:14 Urine Color Lilian (Yellow) 03/02/17 02:31 Urine Turbidity Clear (Clear) 03/02/17 02:31 Urine pH 5.0 (5.0-7.0) 03/02/17 02:31 Ur Specific [place] 1.015 (1.003-1.030) 03/02/17 02:31 Urine Protein <15 mg/dl mg/dL (Negative) 03/02/17 02:31 Urine Glucose (UA) Neg mg/dL (Negative) 03/02/17 02:31 Urine Ketones Neg mg/dL (Negative) 03/02/17 02:31 Urine Blood Sm (Negative) 03/02/17 02:31 Urine Nitrite Neg (Negative) 03/02/17 02:31 Urine Bilirubin Neg (Negative) 03/02/17 02:31 Urine Urobilinogen 4.0 mg/dL (<2.0) 03/02/17 02:31 Ur Leukocyte Esterase Neg (Negative) 03/02/17 02:31 Urine WBC (Auto) 1.0 /HPF (0.0-6.0) 03/02/17 02:31 Urine RBC (Auto) 3.0 /HPF (0.0-6.0) 03/02/17 02:31 U Epithel Cells (Auto) < 1.0 /HPF (0-13.0) 03/02/17 02:31 Urine Mucus Few /HPF 03/02/17 02:31
--- NOTE | 2017-03-04 12:34 | Gastroenterology Progress Note ---
Assessment and Plan - Patient Problems (1) Acute gallstone pancreatitis Current Visit: Yes Status: Acute Plan to address problem: - Clinically improved and LFTs better today. - Will schedule ERCP tomorrow, with CCY depending on clinical course. - Since afebrile with normal WBC, continue to hold antibiotics. - OK to continue clear liquids until midnight. Subjective Date of service: 03/04/17 Principal diagnosis: Gallstone Pancreatitis Interval history: The patient states he has no N/V/abdominal pain. He has no blood in the BMs and has not had F/C. Objective - Constitutional Vitals: Temp Pulse Resp BP Pulse Ox 98.4 F 59 L 20 125/64 98 03/04/17 08:00 03/04/17 08:00 03/04/17 08:00 03/04/17 08:00 03/04/17 08:00 General appearance: no acute distress - EENT Eyes: PERRL, EOM intact - Respiratory Respiratory effort: normal Respiratory: bilateral: CTA - Cardiovascular Rhythm: regular Heart Sounds: Present: S1 & S2 - Gastrointestinal General gastrointestinal: Present: soft, non-tender, non-distended - Labs CBC & Chem 7: 03/03/17 04:05 03/04/17 06:14 Labs: Laboratory Results - last 24 hr 03/04/17 06:14 Sodium 140 Potassium 3.8 Chloride 105.6 Carbon Dioxide 20 L Anion Gap 18 BUN 13 Creatinine 0.7 L Estimated GFR > 60 BUN/Creatinine Ratio 18.57 Glucose 88 Calcium 8.2 L Total Bilirubin 2.10 H AST 45 H ALT 191 H Alkaline Phosphatase 116 Total Protein 6.5 Albumin 3.5 L Albumin/Globulin Ratio 1.2 Lipase 191 H
[2017-03-04] MEDS: LOVENOX SUB-Q SCH (22:00)
[2017-03-05] MEDS: NACL 0.9% 1000 ML 1,000 ML IV SCH ×3 (01:33→18:09)
--- NOTE | 2017-03-05 05:10 | Consultation ---
HISTORY OF PRESENT ILLNESS: This is a 46-year-old [place] man who apparently came because of severe pain in the abdomen of about 1 week's duration. The pain was localized in the mid epigastrium, sometimes radiating into the right upper abdomen. It became markedly worse and he had severe nausea, in particular in the last 2 days prior to this admission. According to him, the pain was very severe and unbearable. He did have some nausea, but no vomiting. He notes that his urine became dark. Upon admission, apparently, he was evaluated by our ER physician and his white count was 9.1, hemoglobin was 15, platelet count was 194. INR was 0.94. The patient had sodium was 138; potassium 3.8; total bilirubin was 6.1, today is 2.1. Alkaline phosphatase improved from 144 to 116, albumin today is 3.5, potassium 3.8. The patient had never been in the hospital. He never had any operations. He does not take any medications on a regular basis. He denied any diabetes. PHYSICAL EXAMINATION: GENERAL: A well-preserved obese [place] man. I got all my information from a friend of his. HEAD AND NECK: Negative. CHEST: Essentially clear. HEART: Sound normal. ABDOMEN: Protuberant, soft and benign. Very minimal tenderness in the epigastric area. EXTREMITIES: Showed no significant edema. IMPRESSION AND PLAN: Abdominal pain, nausea, ?vomiting with elevated bilirubin up to 6 with evidence of gallstones in the gallbladder and in the common bile duct. The patient is scheduled to have an ERCP tomorrow by Dr. Watson going to go from there. I had a lengthy talk with the patient and his family as to the waiting for the result, then we will go from there. Eventually, he would need an operation. JOB# [id number]/[id number]
[2017-03-05 06:44] LABS: Alanine Aminotransferase 142 units/L (7-56); Albumin 3.4 g/dL (3.9-5); Albumin/Globulin Ratio 1.1 %; Alkaline Phosphatase 105 units/L (35-129); Anion Gap 15 mmol/L; BUN/Creatinine Ratio 14.28; Blood Urea Nitrogen 10 mg/dL (9-20); Calcium 8.5 mg/dL (8.4-10.2); Carbon Dioxide 22 mmol/L (22-30); Chloride 106.1 mmol/L (98-107); Glucose 98 mg/dL (75-100); Potassium 3.5 mmol/L (3.6-5.0); Sodium 140 mmol/L (137-145); Total Protein 6.6 g/dL (6.3-8.2)
--- NOTE | 2017-03-05 12:09 | Progress Note ---
Subjective Date of service: 03/05/17 Objective Vital Signs - 12hr 03/05/17 08:34 Temperature 98.8 F Pulse Rate [ 58 L Left Radial] Respiratory 16 Rate Blood Pressure 118/59 [Left Arm] O2 Sat by Pulse 98 Oximetry - Labs 03/03/17 04:05 03/05/17 05:48 Diabetes panel 03/05/17 Range/Units 05:48 Sodium 140 (137-145) mmol/L Potassium 3.5 L (3.6-5.0) mmol/L Chloride 106.1 (98-107) mmol/L Carbon Dioxide 22 (22-30) mmol/L BUN 10 (9-20) mg/dL Creatinine 0.7 L (0.8-1.5) mg/dL Glucose 98 (75-100) mg/dL Calcium 8.5 (8.4-10.2) mg/dL AST 27 (5-40) units/L ALT 142 H (7-56) units/L Alkaline Phosphatase 105 (35-129) units/L Total Protein 6.6 (6.3-8.2) g/dL Albumin 3.4 L (3.9-5) g/dL Calcium panel 03/05/17 Range/Units 05:48 Calcium 8.5 (8.4-10.2) mg/dL Albumin 3.4 L (3.9-5) g/dL Pituitary panel 03/05/17 Range/Units 05:48 Sodium 140 (137-145) mmol/L Potassium 3.5 L (3.6-5.0) mmol/L Chloride 106.1 (98-107) mmol/L Carbon Dioxide 22 (22-30) mmol/L BUN 10 (9-20) mg/dL Creatinine 0.7 L (0.8-1.5) mg/dL Glucose 98 (75-100) mg/dL Calcium 8.5 (8.4-10.2) mg/dL Adrenal panel 03/05/17 Range/Units 05:48 Sodium 140 (137-145) mmol/L Potassium 3.5 L (3.6-5.0) mmol/L Chloride 106.1 (98-107) mmol/L Carbon Dioxide 22 (22-30) mmol/L BUN 10 (9-20) mg/dL Creatinine 0.7 L (0.8-1.5) mg/dL Glucose 98 (75-100) mg/dL Calcium 8.5 (8.4-10.2) mg/dL Total Bilirubin 1.50 H (0.1-1.2) mg/dL AST 27 (5-40) units/L ALT 142 H (7-56) units/L Alkaline Phosphatase 105 (35-129) units/L Total Protein 6.6 (6.3-8.2) g/dL Albumin 3.4 L (3.9-5) g/dL
--- NOTE | 2017-03-05 13:11 | Anesthesia Consultation ---
Anesthesia Consult and Med Hx Date of service: 03/05/17 - Airway Anesthetic Teeth Evaluation: Poor ROM Head & Neck: Adequate Mental/Hyoid Distance: Adequate Mallampati Class: Class III Intubation Access Assessment: Possibly Difficult - Pulmonary Exam CTA: Yes - Cardiac Exam Cardiac Exam: RRR - Pre-Operative Health Status ASA Pre-Surgery Classification: ASA1 Proposed Anesthetic Plan: General - Pulmonary Hx Pneumonia: No - Additional Comments Anesthesia Medical History Comments: No medical or surgical history. Speaks little [place].
--- NOTE | 2017-03-05 13:11 | Anesthesia Day of Surgery ---
Anesthesia Day of Surgery - Day of Surgery Patient Examined: Yes Patient H&P Reviewed: Yes Patient is NPO: Yes
[2017-03-05] MEDS ORDERED: NACL 0.9% 100 ML ONE (13:18)
[2017-03-05] MEDS ORDERED: WATER FOR IRRIG STERILE IR ONE (13:18)
[2017-03-05] MEDS ORDERED: DIPRIVAN 10 MG/ML IV ONE ×3 (13:26→13:27)
[2017-03-05] MEDS ORDERED: VERSED IV ONE (13:28)
--- NOTE | 2017-03-05 13:39 | Progress Note ---
Assessment and Plan Assessment and plan: 38-year-old male presented with acute pancreatitis now resolving. - Patient Problems (1) Obesity (BMI 30.0-34.9) Current Visit: Yes Status: Acute Plan to address problem: Diet exercise modifications discussed. Avoid high calcium foods. (2) Acute gallstone pancreatitis Current Visit: Yes Status: Acute Plan to address problem: Patient abdominal pain is improving. Appetite is really improving. Transaminases are downtrending. AST is 27 AOT 142. Patient scheduled for ERCP today. (3) Hyperbilirubinemia Current Visit: Yes Status: Acute Plan to address problem: Resolving as pancreatitis resolves. (4) Pancreatitis Current Visit: Yes Status: Acute Qualifiers: Chronicity: C Pancreatitis type: P Acute pancreatitis complication: A Plan to address problem: Patient with gallstone pancreatitis improving ERC plan for today. Surgery following. If no stones may require surgery. May be able to do on outpatient as well. Await surgical evaluation and follow-up. History Interval history: Patient states he feels much better today. Patient says both Panamanian and Amharic. at the bedside explain everything about the surgery and stones in detail and they voice understanding. Appetite is increased. Scheduled for ERCP today. Hospitalist Physical - Constitutional Vitals: Temp Pulse Resp BP Pulse Ox 98.4 F 52 L 13 153/84 98 03/05/17 12:54 03/05/17 12:54 03/05/17 12:54 03/05/17 12:54 03/05/17 12:54 General appearance: Present: no acute distress - EENT Eyes: Present: PERRL, EOM intact ENT: hearing intact, clear oral mucosa - Neck Neck: Present: supple, normal ROM - Respiratory Respiratory effort: normal Respiratory: bilateral: CTA - Cardiovascular Rhythm: regular Heart Sounds: Present: S1 & S2 - Extremities Extremities: no ischemia, pulses intact, pulses symmetrical, No edema, normal temperature Extremity abnormal: edema, cyanosis Peripheral Pulses: within normal limits - Abdominal General gastrointestinal: soft, tender, non-distended, normal bowel sounds ( tenderness to deep palpation only) - Psychiatric Psychiatric: appropriate mood/affect, intact judgment & insight, cooperative, depressed - Neurologic Neurologic: CNII-XII intact, focal deficits Results - Labs CBC & Chem 7: 03/03/17 04:05 03/05/17 05:48 Labs: Laboratory Last Values WBC 6.7 K/mm3 (4.5-11.0) 03/03/17 04:05 RBC 4.63 M/mm3 (3.65-5.03) 03/03/17 04:05 Hgb 14.0 gm/dl (11.8-15.2) 03/03/17 04:05 Hct 41.2 % (35.5-45.6) 03/03/17 04:05 MCV 89 fl (84-94) 03/03/17 04:05 MCH 30 pg (28-32) 03/03/17 04:05 MCHC 34 % (32-34) 03/03/17 04:05 RDW 13.8 % (13.2-15.2) 03/03/17 04:05 Plt Count 170 K/mm3 (140-440) 03/03/17 04:05 Lymph % (Auto) 19.8 % (13.4-35.0) 03/03/17 04:05 [place] % (Auto) 7.3 % (0.0-7.3) 03/03/17 04:05 Eos % (Auto) 1.3 % (0.0-4.3) 03/03/17 04:05 Baso % (Auto) 0.3 % (0.0-1.8) 03/03/17 04:05 Lymph # 1.3 K/mm3 (1.2-5.4) 03/03/17 04:05 [place] # 0.5 K/mm3 (0.0-0.8) 03/03/17 04:05 Eos # 0.1 K/mm3 (0.0-0.4) 03/03/17 04:05 Baso # 0.0 K/mm3 (0.0-0.1) 03/03/17 04:05 Seg Neutrophils % 71.3 % (40.0-70.0) H 03/03/17 04:05 Seg Neutrophils # 4.8 K/mm3 (1.8-7.7) 03/03/17 04:05 PT 13.0 Sec. (12.2-14.9) 03/02/17 02:54 INR 0.94 (0.87-1.13) 03/02/17 02:54 Sodium 140 mmol/L (137-145) 03/05/17 05:48 Potassium 3.5 mmol/L (3.6-5.0) L 03/05/17 05:48 Chloride 106.1 mmol/L (98-107) 03/05/17 05:48 Carbon Dioxide 22 mmol/L (22-30) 03/05/17 05:48 Anion Gap 15 mmol/L 03/05/17 05:48 BUN 10 mg/dL (9-20) 03/05/17 05:48 Creatinine 0.7 mg/dL (0.8-1.5) L 03/05/17 05:48 Estimated GFR > 60 ml/min 03/05/17 05:48 BUN/Creatinine Ratio 14.28 % 03/05/17 05:48 Glucose 98 mg/dL (75-100) 03/05/17 05:48 Lactic Acid 0.90 mmol/L (0.7-2.0) 03/02/17 02:54 Calcium 8.5 mg/dL (8.4-10.2) 03/05/17 05:48 Total Bilirubin 1.50 mg/dL (0.1-1.2) H 03/05/17 05:48 AST 27 units/L (5-40) 03/05/17 05:48 ALT 142 units/L (7-56) H 03/05/17 05:48 Alkaline Phosphatase 105 units/L (35-129) 03/05/17 05:48 Total Protein 6.6 g/dL (6.3-8.2) 03/05/17 05:48 Albumin 3.4 g/dL (3.9-5) L 03/05/17 05:48 Albumin/Globulin Ratio 1.1 % 03/05/17 05:48 Lipase 191 units/L (13-60) H 03/04/17 06:14 Urine Color Lil[place] (Yellow) 03/02/17 02:31 Urine Turbidity Clear (Clear) 03/02/17 02:31 Urine pH 5.0 (5.0-7.0) 03/02/17 02:31 Ur Specific [place] 1.015 (1.003-1.030) 03/02/17 02:31 Urine Protein <15 mg/dl mg/dL (Negative) 03/02/17 02:31 Urine Glucose (UA) Neg mg/dL (Negative) 03/02/17 02:31 Urine Ketones Neg mg/dL (Negative) 03/02/17 02:31 Urine Blood Sm (Negative) 03/02/17 02:31 Urine Nitrite Neg (Negative) 03/02/17 02:31 Urine Bilirubin Neg (Negative) 03/02/17 02:31 Urine Urobilinogen 4.0 mg/dL (<2.0) 03/02/17 02:31 Ur Leukocyte Esterase Neg (Negative) 03/02/17 02:31 Urine WBC (Auto) 1.0 /HPF (0.0-6.0) 03/02/17 02:31 Urine RBC (Auto) 3.0 /HPF (0.0-6.0) 03/02/17 02:31 U Epithel Cells (Auto) < 1.0 /HPF (0-13.0) 03/02/17 02:31 Urine Mucus Few /HPF 03/02/17 02:31 - Imaging and Cardiology CT scan - abdomen: image reviewed
--- NOTE | 2017-03-05 15:03 | Post Operative Note ---
Pre-op diagnosis: CBD stones Post-op diagnosis: same Findings: 1. Normal ampulla 2. PD not injected or cannulated 3. CBD mildly dilated (9) - Two small distal defects noted - Medium sphincterotomy - 9mm balloon swept through 3 times: removal of two stones with no residual defects noted 4. Filling of cystic duct noted (no obstruction) Procedure: ERCP with Biliary sphincterotomy and Biliary Balloon stone removal Anesthesia: MAC Surgeon: FAYE ROBERTSON Estimated blood loss: minimal Pathology: none Specimen disposition: other (N/A) Condition: stable Disposition: floor (Recs: 1. Full liquid diet. 2. NPO after MN. 3. OK to proceed with CCY tomorrow if stable. 4. No NSAIDs x 7 days. 5. No abx unless spikes a fever since CBD is clear.)
--- NOTE | 2017-03-05 15:15 | Post Anesthesia Evaluation ---
- Post Anesthesia Evaluation Patient Participated: Yes Airway Patent: Yes Stable Respiratory Function: Yes Nausea/Vomiting: No Temp > 96.8F: Yes Pain Manageable: Yes Adequeate Hydration: Yes Anesthesia Complications: No Block Receding Appropriately: Not Applicable Patient on Ventilator: No
[2017-03-05] MEDS ORDERED: PROTONIX PO SCH (16:00)
--- NOTE | 2017-03-05 16:05 | Fluoroscopy Report ---
ERCP: Gallstones. This procedure was performed in the absence of an attending radiologist. Interpretation of the images demonstrate injection of contrast into the CBD. There are at least 2 filling defects identified on the initial image. On the final images the CBD is free of any filling defects as are the proximal intrahepatic branches. The distal branches are not included. There is incomplete filling of the cystic duct and no filling of the gallbladder. According to the procedure sheet the gallstones were removed using a balloon with papillotomy.
[2017-03-05] MEDS: LOVENOX SUB-Q SCH (21:28)
[2017-03-06] MEDS: NACL 0.9% 1000 ML 1,000 ML IV SCH ×2 (00:43→06:54)
--- NOTE | 2017-03-06 03:35 | Operative Report ---
PROCEDURE PERFORMED: Endoscopic retrograde cholangiopancreatography with biliary sphincterotomy and balloon sweeping of the common bile duct. PREOPERATIVE DIAGNOSIS: Choledocholithiasis. POSTOPERATIVE DIAGNOSIS: Choledocholithiasis. ENDOSCOPIST: Brandon Watson M.D. INSTRUMENT: Pure Elegance TV video endoscope. MEDICATIONS: MAC anesthesia by [facility]. COMPLICATIONS: No apparent complications. ESTIMATED BLOOD LOSS: Minimal. SPECIMENS: None. IMPLANTS: None. DIRECTOR CORPORATE SALES: None. CONDITION AT COMPLETION: Stable. TECHNIQUE: The patient was informed of the risks and benefits of the procedure. He signed the informed consent to proceed. The patient was placed in the prone position. The above sedative medications were given. His vital signs remained stable throughout the procedure. The instrument was advanced from the mouth to the second portion of the duodenum under direct visualization. At that point, the bowel was insufflated. The ampulla was noted to be normal in shape and size. The pancreatic duct was not cannulated but the common bile duct was cannulated with relative ease using a Dreamtome and a 0.035 guidewire. A cholangiogram showed evidence of 2 small distal filling defects. A medium-sized sphincterotomy was performed and a 9 mm balloon was swept 3 times through the common bile duct; there was removal of 2 small black stones and no evidence of residual defects noted. The procedure was then terminated. FINDINGS: 1. Normal-appearing ampulla. 2. Pancreatic duct was not injected nor cannulated. 3. The common bile duct was cannulated using a Dreamtome and a 0.035 guidewire. A. The common bile duct was mildly dilated to 9 mm. B. Two small filling defects were noted distally. C. A medium-sized sphincterotomy was performed. D. A 9 mm balloon was swept 3 times through the common bile duct; there was removal of the 2 small, less than 3 mm, black stones and there were no residual defects noted on the final cholangiogram 4. There was filling of the cystic duct and the gallbladder during the procedure. RECOMMENDATIONS: 1. Full liquid diet. 2. Nothing by mouth after midnight. 3. Okay to proceed with cholecystectomy tomorrow if the patient is stable. 4. No aspirin products for the next 7 days. 5. No antibiotics unless the patient spikes a fever since the common bile duct is clear. [facility]# [id number] DEACON/NTS
--- NOTE | 2017-03-06 08:53 | Gastroenterology Progress Note ---
Assessment and Plan 1.choledocholithiasis 2.gallstone pancreatitis 3.abd pain -afebrile -LFTs trending down -S/P ERCP yesterday w/ biliary sphincterotomy and biliary balloon stone removal -Pt denies abd pain, N/V, or signs of bleeding overnight or this morning -scheduled for CCY today -no further GI interventions recommended at this time -Pt is okay to be d/c from GI standpoint with f/u appt in 2 weeks -discussed need for f/u appt with pt, office information and card given -will sign off Subjective Date of service: 03/06/17 Principal diagnosis: Gallstone Pancreatitis Interval history: Patient sitting on the side of the bed this morning. No acute distress. Family at bedside. Denies abd pain, N/V, or signs of bleeding. Objective - Constitutional Vitals: Temp Pulse Resp BP Pulse Ox 98.1 F 82 20 128/75 94 03/06/17 00:00 03/06/17 00:00 03/06/17 00:00 03/06/17 00:00 03/06/17 00:00 General appearance: no acute distress, well-nourished - EENT Eyes: PERRL, EOM intact ENT: hearing intact - Respiratory Respiratory: bilateral: CTA - Cardiovascular Rhythm: regular Heart Sounds: Present: S1 & S2 - Extremities Extremities: No edema - Gastrointestinal General gastrointestinal: Present: soft, non-tender, non-distended, normal bowel sounds - Integumentary Integumentary: Present: warm, dry - Neurologic Neurological: alert and oriented x3 - Psychiatric Psychiatric: appropriate mood/affect, cooperative - Labs CBC & Chem 7: 03/03/17 04:05 03/05/17 05:48
[2017-03-06 09:15] LABS: Alanine Aminotransferase 118 units/L (7-56); Albumin 3.7 g/dL (3.9-5); Albumin/Globulin Ratio 1.2 %; Alkaline Phosphatase 106 units/L (35-129); Anion Gap 17 mmol/L; BUN/Creatinine Ratio 11.25; Blood Urea Nitrogen 9 mg/dL (9-20); Calcium 8.6 mg/dL (8.4-10.2); Carbon Dioxide 23 mmol/L (22-30); Chloride 100.5 mmol/L (98-107); Glucose 96 mg/dL (75-100); Potassium 3.5 mmol/L (3.6-5.0); Sodium 137 mmol/L (137-145); Total Protein 6.8 g/dL (6.3-8.2)
[2017-03-06 10:20] LABS: Albumin 3.5 g/dL (3.9-5); Bilirubin,Direct 0.4 mg/dL (0-0.2); Bilirubin,Indirect 1.2 mg/dL; Bilirubin,Total 1.6 mg/dL (0.1-1.2); Total Protein 6.9 g/dL (6.3-8.2)
--- NOTE | 2017-03-06 13:42 | Discharge Summary ---
Providers - Providers Date of Admission: 03/02/17 05:28 Date of discharge: 03/06/17 Attending physician: ILIANA LEE 03/04/17 14:01 Consult to Physician [CONS] Routine Consulting Provider: ANDREA RODRIGUEZ Reason For Exam: cholelithiasis, sp with Gallstone pancreatitis Place consult to:: DR. RODRIGUEZ Notified:: DR. RODRIGUEZ Phone number called:: [phone] Was contact made?: Yes If yes, spoke with:: DR. RODRIGUEZ Time called:: 14:25 Comment:: LANI RODRIGUEZ Primary care physician: BUCKLE ATTACHER Hospitalization Condition: Good Hospital course: This is a 46-year-old male, w no significant pmh who presents with a complaint of abdominal pain, and loss of appetite Discharge diagnosis and management: Acute Gall stone pancreatitis with choledocolithiasis advance diet to clear liquids GI input appreciated s/p ERCP on Sunday lipase trended down will need cholecystectomy after that as he has numerous stone in his GB, to prevent recurrence Gen surgery consulted and he will have CCL as outpt Elevated Liver ezyme secondary to Pancreatitis closely monitored liver enzymes Ongoing smoking Smoking counseling done patient strongly advised to quit smoking and patient agreed upon course of action. Disposition: DC- TO HOME OR SELFCARE Time spent for discharge: 35 minutes Exam - Constitutional Vitals: Temp Pulse Resp BP Pulse Ox 98.6 F 53 L 20 125/76 94 03/06/17 08:00 03/06/17 08:00 03/06/17 08:00 03/06/17 08:00 03/06/17 00:00 Plan Activity: advance as tolerated Weight Bearing Status: Weight Bear as Tolerated Diet: low fat, low salt Follow up with: PRIMARY CARE, [Primary Care Provider] - 3-5 Days
[2017-03-06] MEDS ORDERED: K-DUR PO ONE (15:03)
--- NOTE | 2017-03-06 15:31 | Progress Note ---
Subjective Patient Reports: Positive: feels better, flatus, bowel movement Narrative: feels much better . Bili 1.6 will need cholecystectomy electively will do next week to see me in office , Talked to Dr Robin . Objective Vital Signs - 12hr 03/06/17 08:00 Temperature 98.6 F Pulse Rate [ 53 L Left Radial] Respiratory 20 Rate Blood Pressure 125/76 [Left Arm] - Labs 03/03/17 04:05 03/06/17 07:52 Diabetes panel 03/06/17 03/06/17 Range/Units 07:52 07:52 Sodium 137 (137-145) mmol/L Potassium 3.5 L (3.6-5.0) mmol/L Chloride 100.5 (98-107) mmol/L Carbon Dioxide 23 (22-30) mmol/L BUN 9 (9-20) mg/dL Creatinine 0.8 (0.8-1.5) mg/dL Glucose 96 (75-100) mg/dL Calcium 8.6 (8.4-10.2) mg/dL AST 31 33 (5-40) units/L ALT 118 H 118 H (7-56) units/L Alkaline Phosphatase 106 106 (35-129) units/L Total Protein 6.8 6.9 (6.3-8.2) g/dL Albumin 3.7 L 3.5 L (3.9-5) g/dL Calcium panel 03/06/17 03/06/17 Range/Units 07:52 07:52 Calcium 8.6 (8.4-10.2) mg/dL Albumin 3.7 L 3.5 L (3.9-5) g/dL Pituitary panel 03/06/17 Range/Units 07:52 Sodium 137 (137-145) mmol/L Potassium 3.5 L (3.6-5.0) mmol/L Chloride 100.5 (98-107) mmol/L Carbon Dioxide 23 (22-30) mmol/L BUN 9 (9-20) mg/dL Creatinine 0.8 (0.8-1.5) mg/dL Glucose 96 (75-100) mg/dL Calcium 8.6 (8.4-10.2) mg/dL Adrenal panel 03/06/17 03/06/17 Range/Units 07:52 07:52 Sodium 137 (137-145) mmol/L Potassium 3.5 L (3.6-5.0) mmol/L Chloride 100.5 (98-107) mmol/L Carbon Dioxide 23 (22-30) mmol/L BUN 9 (9-20) mg/dL Creatinine 0.8 (0.8-1.5) mg/dL Glucose 96 (75-100) mg/dL Calcium 8.6 (8.4-10.2) mg/dL Total Bilirubin 1.50 H 1.60 H (0.1-1.2) mg/dL AST 31 33 (5-40) units/L ALT 118 H 118 H (7-56) units/L Alkaline Phosphatase 106 106 (35-129) units/L Total Protein 6.8 6.9 (6.3-8.2) g/dL Albumin 3.7 L 3.5 L (3.9-5) g/dL
[2017-03-06 18:50] VITALS: BP 130/78
== END 2017-03-06 19:30 | disposition home or self-care (01) | DRG 444 ==
LOC: ED 01:49 → 3A 05:28
PROVIDERS: ADMIT Internal Medicine; ATTEND Internal Medicine
PROC: 0FC98ZZ Extirpation of Matter from Common Bile Duct, Via Natural or Artificial Opening Endoscopic (ICD-10-PCS; principal; 2017-03-05)
PROC: BF101ZZ Fluoroscopy of Bile Ducts using Low Osmolar Contrast (ICD-10-PCS; 2017-03-05)
DX: K80.51 Calculus of bile duct without cholangitis or cholecystitis with obstruction (principal); K85.10 Biliary acute pancreatitis without necrosis or infection; R74.0 Nonspecific elevation of levels of transaminase and lactic acid dehydrogenase [LDH]; F17.200 Nicotine dependence, unspecified, uncomplicated; E80.6 Other disorders of bilirubin metabolism; E66.9 Obesity, unspecified; Z68.21 Body mass index [BMI] 21.0-21.9, adult; Z71.6 Tobacco abuse counseling; Z82.49 Family history of ischemic heart disease and other diseases of the circulatory system
CPT/HCPCS: 36415; 74177; 74328; 80053; 80074; 81001; 82140; 83690; 85025; 85610; 87493; 93005; 93010; 96361; 96374; 96375; 99285; 99406; C1726; J1170; J1650; J2185; J2250; J2270; J2405; J2704; J7030; Q9967